=== PATIENT | female | born 1955 | race Caucasian/White ===

== ENCOUNTER 2021-01-07 13:57 | Outpatient (CLI) | payer BC ==
[~2021-01-07 13:57] MED LIST: Magnevist 469MG/ML 20 ML VIAL ONE
[2021-01-08 10:23] LABS: Estimated GFR-MDRD - POC Greater than 90
== END 2021-01-07 13:58 | disposition home or self-care (01) ==
LOC: TBSIIMAG 13:57
PROVIDERS: ATTEND Internal Medicine Gastroenterology
DX: R16.0 Hepatomegaly, not elsewhere classified (principal); D18.03 Hemangioma of intra-abdominal structures; K76.0 Fatty (change of) liver, not elsewhere classified; R93.422 Abnormal radiologic findings on diagnostic imaging of left kidney
CPT/HCPCS: 74183; 82565; A9579